=== PATIENT | female | born 1980 | race Caucasian/White ===

== ENCOUNTER → 2016-11-24 | Outpatient (CLI) | payer MEDICAID | LOC: FIMAGING 14:01 | PROVIDERS: ATTEND Advanced Practice Midwife | DX: O09.512 Supervision of elderly primigravida, second trimester (principal); Z3A.13 13 weeks gestation of pregnancy ==

== ENCOUNTER → 2017-01-04 | Outpatient (CLI) | payer MEDICAID | LOC: FIMAGING 10:27 | PROVIDERS: ATTEND Obstetrics & Gynecology | DX: O09.512 Supervision of elderly primigravida, second trimester (principal); Z3A.19 19 weeks gestation of pregnancy ==

== ENCOUNTER 2017-05-29 13:25 | Inpatient (IN) | payer MEDICAID ==
--- NOTE | 2017-05-29 14:14 | OBPROG ---
Labor Progress Note Assessment/Plan: Assessment:cat 1 fhr shameka 12.5 with US feeling occasional contractions + fm denies bloody show exam /ballotable soft posterior amnisure collected negative nitrazine Plan:wait for amnisure labor precautions given fu in the clinic if negative nitrazine with next scheduled appt. 05/29/17 14:12 Subjective/Intrapartum Course: 05/29/17 14:11 questioning leaking of clear fluid this am at 1100 x1 05/29/17 14:15 - SVE Dilation (cm): 1 Effacement (%): 75 Station: -3 Membranes: Intact - Contraction Pattern Assessment Current Contraction Pattern: Regular - Physical Exam General Appearance: WD/WN, alert, no apparent distress Respiratory: chest non-tender, lungs clear, normal breath sounds Cardiac/Chest: regular rate, rhythm Abdomen: normal bowel sounds Extremities: normal range of motion, Daniella's sign (negative bilaterally) DTR- Lower Extremities: Knee (R): 1+, Knee (L): 1+ (no clonus) Skin: normal color, warm/dry Neuro/Psych: no motor/sensory deficits, alert, normal mood/affect, oriented x 3 ICD10 Worksheet Patient Problems: Problems Problem Status Onset term questioning srom Acute
--- NOTE | 2017-05-29 14:41 | GHP ---
[f rep st] HISTORY AND PHYSICAL DATE OF ADMISSION: 05/29/2017 HISTORY OF PRESENT ILLNESS: The patient is a 36-year-old 1, para 0, with an EDC of 8, who comes in to labor and delivery on 05/29/2017, with complaints of rupture of membranes since 11 a.m. The patient has been routinely seeing [facility] since 10/23/2016. PAST MEDICAL HISTORY: HSV 2, anxiety, history of degenerative back disease. PAST SURGICAL HISTORY: Polypectomy with a D and C. GYNECOLOGICAL HISTORY: Previous abnormal Pap, Mirena use, may have had a cryo or LEEP, D and C for p olyps in 2009, HSV 2 since 2006. Menarche at age 10, interval 28 days, length 3-5 days. Last LMP wa s 08/28/2016. SOCIAL HISTORY: Patient is . Denies drug use. Denies tobacco use. ALLERGIES: NKDA. MEDICATIONS: Valtrex, vitamin, folate, omega-3, magnesium, Pashto herbs. LABS: Patient is A positive, antibody negative. RPR is nonreactive. Rubella is immune. Hepatitis is negative. HIV is negative. Gonorrhea and chlamydia are negative. Pap on 10/26/2016, was negativ e. A 1-hour GTT was within normal limits. The patient is GBS positive. At this time, the patient d oes not complain of any HSV outbreaks. The patient is taking Valtrex routinely. PHYSICAL ASSESSMENT: GENERAL: The patient is awake, alert, oriented x3. LUNGS: Clear bilaterally. ABDOMEN: Bowel sounds are positive in all 4 quadrants. EXTREMITIES: DTRs are 1+ bilaterally, wit h no clonus. Homans sign is negative bilaterally. HEART: Rate is regular and rhythmic. PLAN OF CARE: 1. AmniSure. 2. Nitrazine, that was negative. 3. An exam. Patient was 1 cm, 75% effaced, soft, posterior, ballotable, cephalic. An ultrasound wa s completed with an RITO of 12.5. 4. Consult Dr. Xochitl Garcia as needed. /[id number]/MODL
[2017-05-29] MEDS ORDERED: MISOPROSTOL 200 MCG TAB PR PRN (14:45)
[2017-05-29] MEDS ORDERED: AMPICILLIN SODIUM 2 GM in STERILE WATER INJ 25 ML IV ONE (14:45)
[2017-05-29] MEDS ORDERED: OXYTOCIN 20 UNIT in LR 1,000 ML IV PRN (14:45)
[2017-05-29] MEDS ORDERED: EPSOM SALT 454 GM TP PRN (14:45)
[2017-05-29] MEDS ORDERED: TERBUTALINE SULFATE 1 MG/ML VIAL IV PRN (14:45)
[2017-05-29] MEDS ORDERED: OLIVE OIL 118 ML BTL MISC PRN (14:45)
[2017-05-29] MEDS ORDERED: IBUPROFEN 600 MG TAB PO PRN (14:45)
--- NOTE | 2017-05-29 14:45 | OBPROG ---
Labor Progress Note Assessment/Plan: Assessment:cat 1 fhr shameka 12.5 with US feeling occasional contractions + fm denies bloody show exam /ballotable soft posterior amnisure collected negative nitrazine amnisure positive will admit for labor gbs positive will begin antibiotics Plan:admit for labor 05/29/17 14:12 05/29/17 14:43 Subjective/Intrapartum Course: 05/29/17 14:11 questioning leaking of clear fluid this am at 1100 x1 05/29/17 14:15 - SVE Membranes: Intact - Contraction Pattern Assessment Current Contraction Pattern: Regular - Physical Exam General Appearance: WD/WN, alert, no apparent distress Respiratory: chest non-tender, lungs clear, normal breath sounds Cardiac/Chest: regular rate, rhythm Abdomen: normal bowel sounds Extremities: normal range of motion, Daniella's sign (negaive bilaterally) DTR- Lower Extremities: Knee (R): 1+, Knee (L): 1+ (no clonus) Skin: normal color, warm/dry Neuro/Psych: no motor/sensory deficits, alert, normal mood/affect, oriented x 3 ICD10 Worksheet Patient Problems: Problems Problem Status Onset term questioning srom Acute
--- NOTE | 2017-05-29 15:00 | PDMN ---
Medical Necessity Medical necessity: C/M review: est. > 2 MN LOS for eval and TX of ruptured menbranes, positive Amnisure, EDC 05/29/2017, laboe for expectant management of labor and delivery per 05/29/2017 14:43 Labor progress note.
[2017-05-29] MEDS: LR 1,000 ML IV PRN (16:50)
[2017-05-29 17:56] LABS: PLATELET COUNT 145 10^3/uL (150-400)
[2017-05-29] MEDS ORDERED: OXYTOCIN 30 UNIT in NS 500 ML IV SCH (18:00)
[2017-05-29] MEDS ORDERED: AMPICILLIN SODIUM 1 GM in STERILE WATER INJ 15 ML IV SCH (19:00)
--- NOTE | 2017-05-29 20:18 | OBPROG ---
Labor Progress Note Assessment/Plan: Assessment: 36 yo primip at 40 wk with PROM since 1100 this morning (9.5 hours) and no labor yet. High anxiety level, but good support crew here with her. Plan: After options - including pitocin, misoprostil and continued expectant management were discussed, I recommended proceeding with oral misoprostil. Benefits / risks / adverse effects discussed. Pt agreed to proceed with oral misoprostil. 05/29/17 20:30 Subjective/Intrapartum Course: 05/29/17 14:11 questioning leaking of clear fluid this am at 1100 x1 05/29/17 14:15 05/29/17 20:26 Pt, Kuldeep, umesh Enriquez and support person Mellisa, and therapy dog all met. I received report from Tara Iyer CNM. Pt had requested a CNM delivery. She has spoken with Rylee Hernandez CNM, as she has a high anxiety level, though Rylee is not parts person this weekend. After a meeting and discussion, pt and crew took a walk. When she was ready to proceed, she agreed to have another cervix check as she is apprehensive about proceeding. Objective: 05/29/17 16:50 Patient ABO/Rh A POSITIVE 05/29/17 16:50 36.4 68 134/68 SVE 1 / 75 / high and posterior gen - pleasant anxious female abd - soft, gravid, nontender ext - trace edema - SVE Dilation (cm): 1 Effacement (%): 75 Station: -3 Membranes: Intact - Contraction Pattern Assessment Current Contraction Pattern: Irregular - FHR Assessment Buck FHR (bpm): 130 (+ accels) FHR Pattern Variability: Moderate FHR Category: 1 Oxytocin Orders Assessment - Pre-Induction/Augmentation Assessment Gestational Age: 40 week(s) and 0 day(s) ICD10 Worksheet Patient Problems: Problems Problem Status Onset term questioning srom Acute
[2017-05-29] MEDS: MISOPROSTOL 50 MCG CAP PO SCH (20:33)
[2017-05-29] MEDS: AMPICILLIN SODIUM 1 GM in STERILE WATER INJ 15 ML IV SCH (20:34)
[2017-05-30] MEDS: MISOPROSTOL 50 MCG CAP PO SCH ×2 (02:53→07:01)
[2017-05-30] MEDS: AMPICILLIN SODIUM 1 GM in STERILE WATER INJ 15 ML IV SCH ×5 (06:59→23:46)
[2017-05-30] MEDS ORDERED: MISOPROSTOL 50 MCG CAP PO SCH (07:00)
--- NOTE | 2017-05-30 07:00 | OBPROG ---
Labor Progress Note Assessment/Plan: Assessment: 36 yo primip at 40 wk with PROM since 1100 this morning (9.5 hours) and no labor yet. High anxiety level, but good support crew here with her. Plan: After options - including pitocin, misoprostil and continued expectant management were discussed, I recommended proceeding with oral misoprostil. Benefits / risks / adverse effects discussed. Pt agreed to proceed with oral misoprostil. 05/29/17 20:30 05/30/17 07:06 Assessment: 36 yo primip at 40w1d, PROM x 20 hours, not in active labor yet. No signs of chorioamnionitis. Plan: Miso #3 now. Plan vaginal exam in 4 hours and consider pitocin. Long discussion with patient and about this plan. They are agreeable to this. Subjective/Intrapartum Course: 05/29/17 14:11 questioning leaking of clear fluid this am at 1100 x1 05/29/17 14:15 05/29/17 20:26 Pt, umesh Light and support person Mellisa, and therapy dog all met. I received report from Tara Iyer CNM. Pt had requested a CNM delivery. She has spoken with Rylee Hernandez CNM, as she has a high anxiety level, though Rylee is not airborne weapons technical manager this weekend. After a meeting and discussion, pt and crew took a walk. When she was ready to proceed, she agreed to have another cervix check as she is apprehensive about proceeding. 05/30/17 07:00 Pt doing well. Was able to get some sleep last night. Only and therapy dog stayed overnight. Pt prefers to avoid another cervical exam now, but agrees to another dose of misoprostil now, and a vaginal exam and likely pitocin in 4 hours. Feels like baby is a lot lower and contractions are more uncomfortable. Objective: 05/29/17 16:50 Patient ABO/Rh A POSITIVE 05/29/17 16:50 36.7 77 18 102/55 has remained afebrile gen - pleasant female, NAD, does not appear uncomfortable with contractions abd - soft, gravid, NT, does not feel warm - SVE Membranes: Intact - Contraction Pattern Assessment Current Contraction Pattern: Irregular (q2-5) Oxytocin Orders Assessment - Pre-Induction/Augmentation Assessment Gestational Age: 40 week(s) and 0 day(s) ICD10 Worksheet Patient Problems: Problems Problem Status Onset term questioning srom Acute
[2017-05-30] MEDS ORDERED: LIDOCAINE 1% 300 MG/30 ML SDV ONE (08:43)
[2017-05-30] MEDS ORDERED: TERBUTALINE SULFATE 1 MG/ML VIAL ONE (08:44)
[2017-05-30] MEDS ORDERED: OXYTOCIN 10 UNIT/ML VIAL ONE (08:44)
[2017-05-30] MEDS ORDERED: AMMONIA AROMATIC 1 EACH AMP IH ONE (08:44)
[2017-05-30] MEDS ORDERED: MISOPROSTOL 200 MCG TAB ONE (08:44)
[2017-05-30] MEDS ORDERED: OLIVE OIL 118 ML BTL ONE (08:44)
[2017-05-30] MEDS: LR 1,000 ML IV PRN (13:59)
--- NOTE | 2017-05-30 14:35 | OBPROG ---
Labor Progress Note Assessment/Plan: Assessment: Explained rationale behind augmenting with Pitocin, and also reasons for continuing abx given GBS positive. Ultimately we made a plan to start Pit and continuing abx. Will check once she's more uncomfortable with at least 2-3 hrs of regular ctx's. No s/sx of chorio at this point. Baby FHR Category I/II, some intermittent variables. Rylee Hernandez may try to be available for Estefania for delivery - I will also be available. LAYA Subjective/Intrapartum Course: 05/29/17 14:11 questioning leaking of clear fluid this am at 1100 x1 05/29/17 14:15 05/29/17 20:26 Pt, Kuldeep, umesh Enriquez and support person Mellisa, and therapy dog all met. I received report from Tara Iyer CNM. Pt had requested a CNM delivery. She has spoken with Rylee Hernandez CNM, as she has a high anxiety level, though Rylee is not application manager this weekend. After a meeting and discussion, pt and crew took a walk. When she was ready to proceed, she agreed to have another cervix check as she is apprehensive about proceeding. 05/30/17 07:00 Pt doing well. Was able to get some sleep last night. Only and therapy dog stayed overnight. Pt prefers to avoid another cervical exam now, but agrees to another dose of misoprostil now, and a vaginal exam and likely pitocin in 4 hours. Feels like baby is a lot lower and contractions are more uncomfortable. 05/30/17 15:29 Talked to [place] this afternoon. She's doing okay, but frustrated with slow progress. Has only progressed to 1-2 with 3rd miso placed at 0630 this AM. Feeling regular ctx's, but not super painful. She's open to Pitocin. Had been resistant to the idea of antibiotics (further doses anyway) and answered questions about that. Some blood show, leaking more fluid today. Objective: 05/29/17 16:50 Patient ABO/Rh A POSITIVE 05/29/17 16:50 - SVE Dilation (cm): 1 (1-2, on last exam around 1100) Membranes: SROM Amniotic Fluid Color: Clear - Contraction Pattern Assessment Current Contraction Pattern: Irregular (q2-5) - FHR Assessment Buck FHR (bpm): 130 FHR Pattern Variability: Moderate FHR Category: 1 Oxytocin Orders Assessment - Pre-Induction/Augmentation Assessment Gestational Age: 40 week(s) and 0 day(s) ICD10 Worksheet Patient Problems: Problems Problem Status Onset term questioning srom Acute
[2017-05-30] MEDS ORDERED: PHENYLEPHRINE HCL 100 MCG/ML SYR IVP PRN (20:42)
[2017-05-30] MEDS ORDERED: ONDANSETRON 4 MG/2 ML VIAL IVP PRN (20:42)
[2017-05-30] MEDS ORDERED: NALOXONE HCL 0.4 MG/ML INJ IVP PRN (20:42)
--- NOTE | 2017-05-30 20:47 | PDANEPAE ---
ANE History of Present Illness 36 yo female in labor. ANE Past Medical History - Cardiovascular History Hx Hypertension: No Hx Chest Pain: No Hx Palpitations: No - Pulmonary History Hx COPD: No Hx Recent Upper Respiratory Infection: No Hx Sleep Apnea: No - Neurologic History Neurologic History Comment: scoliosis, spondylolisthesis, LBP - Renal History Hx Renal Disorders: No - Liver History Hx Hepatic Disorders: No - Neurological & Psychiatric Hx Hx Neurological and Psychiatric Disorders: Yes Neurological / Psychiatric History Comment: anxiety - Chronic Pain History Chronic Pain: No ANE Review of Systems Review of Systems: ANE Patient History - Allergies Allergies/Adverse Reactions: No Known Allergies Allergy (Unverified 05/29/17 13:50) - NPO status NPO Since - Solids (Date): 05/30/17 NPO Since - Solids (Time): 19:00 - Anes Hx Anes Hx: no prior problems - Smoking Hx Smoking Status: Never smoked ANE Labs/Vital Signs - Labs Result Diagrams: 05/29/17 16:50 - Vital Signs Vital Signs: reviewed preoperatively; see RN documention for details Height: 167.64 cm Weight: 78.471 kg ANE Physical Exam - Airway Neck exam: FROM Mallampati Score: Class 2 Mouth exam: normal dental/mouth exam - Cardiovascular Cardiovascular: regular rate and rhythym - ASA Status ASA Status: II ANE Anesthesia Plan Anesthesia Plan: epidural
[2017-05-30] MEDS ORDERED: FENTANYL EP SCH (21:00)
[2017-05-30] MEDS ORDERED: fentaNYL 4MCG/ML/BUP 0.0625% R 250 ML EP SCH (21:00)
[2017-05-30] MEDS ORDERED: LR 500 ML IV SCH (21:00)
[2017-05-30] MEDS ORDERED: BUPIVACAINE 0.5% EP SCH (21:00)
[2017-05-30] MEDS ORDERED: NS EP SCH (21:00)
--- NOTE | 2017-05-30 21:44 | POSTANESTH ---
Post Anesthetic Evaluation Cardiovascular Status: Normal, Stable Respiratory Status: Normal, Stable Level of Consciousness/Mental Status: Can Participate in Eval, Alert and Oriented Pain Control: Adequate, Prn Tx Ordered Nausea/Vomiting Control: Adequate, Prn Tx Ordered Complications Possibly Related to Anesthesia: None Noted (Pt comfortable with no pain during contractions anymore. All questions answered about how to use epidural optimally.)
--- NOTE | 2017-05-31 00:29 | OBPROG ---
Labor Progress Note Assessment/Plan: Assessment: [id number] with IUP@ 40-2wks PROM- Augmentation, s/p cytotec x 3 doses, currently on pitocin GBS+ cat 2 FHR tracing Prolong ROM (>36hours) Plan: cont pitocin cont to recommend IV Abx for GBS+ reassess 2-4hr/PRN 05/31/17 00:26 05/31/17 00:34 Subjective/Intrapartum Course: 05/29/17 14:11 questioning leaking of clear fluid this am at 1100 x1 05/29/17 14:15 05/29/17 20:26 Pt, Kuldeep, umesh Enriquez and support person Mellisa, and therapy dog all met. I received report from Tara Iyer CNM. Pt had requested a CNM delivery. She has spoken with Rylee Hernandez CNM, as she has a high anxiety level, though Rylee is not health education assistant this weekend. After a meeting and discussion, pt and crew took a walk. When she was ready to proceed, she agreed to have another cervix check as she is apprehensive about proceeding. 05/30/17 07:00 Pt doing well. Was able to get some sleep last night. Only and therapy dog stayed overnight. Pt prefers to avoid another cervical exam now, but agrees to another dose of misoprostil now, and a vaginal exam and likely pitocin in 4 hours. Feels like baby is a lot lower and contractions are more uncomfortable. 05/30/17 15:29 Talked to [place] this afternoon. She's doing okay, but frustrated with slow progress. Has only progressed to 1-2 with 3rd miso placed at 0630 this AM. Feeling regular ctx's, but not super painful. She's open to Pitocin. Had been resistant to the idea of antibiotics (further doses anyway) and answered questions about that. Some blood show, leaking more fluid today. 05/31/17 00:27 Pt doing well, comfortable with MANASA. She denies any pain. She states she is emotionally and physically exhausted. She states she is very frustrated that she has not progressed. Kuldeep and Mina are present and supportive. Objective: 05/29/17 16:50 Patient ABO/Rh A POSITIVE 05/29/17 16:50 - SVE Dilation (cm): 4 Effacement (%): 75 Station: -2 Membranes: SROM Amniotic Fluid Color: Clear - Contraction Pattern Assessment Current Contraction Pattern: Irregular (q2-5) - Physical Exam General Appearance: WD/WN, alert, no apparent distress Abdomen: non-tender, soft Skin: normal color, warm/dry Neuro/Psych: alert, normal mood/affect, oriented x 3 Oxytocin Orders Assessment - Pre-Induction/Augmentation Assessment Presentation: Vertex Gestational Age: 40 week(s) and 0 day(s) Membrane Status: Ruptured Current Contraction Pattern: Irregular - Olzano's Score Dilation: 3-4cm Effacement: 60-70 Station: -2 Cervix: Soft Cervix Position: Mid Lozano Score Total: 8 - Induction/Augmentation Consent Risks/Benefits of Procedure Reviewed/Pt Agrees to Proceed: Yes ICD10 Worksheet Patient Problems: Problems Problem Status Onset AMA (advanced maternal age) multigravida 35+ Acute GBS (group B Streptococcus carrier), +RV culture, currently Acute PROM (premature rupture of membranes) Acute Prolonged spontaneous rupture of membranes Acute term questioning srom Acute - ICD10 Problem Qualifiers (1) PROM (premature rupture of membranes) Qualifiers: PROM onset of labor timing: unspecified duration between rupture of membranes and onset of labor PROM gestational age: full term Qualified Code( s): O42.92 - Full-term premature rupture of membranes, unspecified as to length of time between rupture and onset of labor (2) Prolonged spontaneous rupture of membranes (3) GBS (group B Streptococcus carrier), +RV culture, currently (4) AMA (advanced maternal age) multigravida 35+ Qualifiers: Trimester: third trimester Qualified Code(s): O09.523 - Supervision of elderly multigravida, third trimester
[2017-05-31] MEDS: AMPICILLIN SODIUM 1 GM in STERILE WATER INJ 15 ML IV SCH ×3 (02:24→19:12)
[2017-05-31] MEDS ORDERED: SIMETHICONE 80 MG TAB CHEW PO PRN (16:13)
[2017-05-31] MEDS ORDERED: ACETAMINOPHEN 325 MG TAB PO PRN (16:13)
[2017-05-31] MEDS ORDERED: HYDROCORTISONE 0.5% CREAM TP PRN (16:13)
--- NOTE | 2017-05-31 17:02 | OBDEL ---
Info Type: Vaginal Presentation at Delivery: Vertex L&D Analgesia/Anesthesia Type: Epidural GBS+: Yes Antibiotic Used for + GBS: Ampicillin Intrapartum Medications: Discontinued Medications Generic Name Dose Route Start Last Admin Trade Name Freq PRN Reason Stop Dose Admin Ampicillin Sodium 2 gm/ 25 mls @ 100 mls/hr 05/29/17 14:45 05/29/17 16:50 Sterile Water IV 05/29/17 14:59 25 mls ONCE ONE Administration Protocol Ampicillin Sodium 1 gm/ 15 mls @ 60 mls/hr 05/29/17 19:00 05/29/17 20:25 Sterile Water IV 06/28/17 18:59 Not Given Q4H RICHARD Protocol Lactated Ringer's 1,000 mls @ 0 mls/hr 05/29/17 14:45 05/30/17 13:59 Lr IV 05/30/17 14:44 1,000 mls PRN PRN Administration SEE PROTOCOL CONDITIONS Protocol Per Protocol Oxytocin 30 unit/ Sodium 503 mls @ 0 mls/hr 05/29/17 18:00 05/30/17 14:40 Chloride IV 11/25/17 17:59 503 mls CONT RICHARD Administration Protocol Per Protocol Ampicillin Sodium 1 gm/ 15 mls @ 60 mls/hr 05/29/17 21:00 05/31/17 06:48 Sterile Water IV 06/28/17 20:59 Not Given Q4H RICHARD Protocol Lactated Ringer's 500 mls @ 0 mls/hr 05/30/17 21:00 05/31/17 02:03 Lr IV 11/26/17 20:59 500 mls CONT RICHARD Administration As Directed Ibuprofen 600 mg 05/29/17 14:45 05/31/17 13:01 Motrin PO 11/25/17 14:44 600 mg Q6HRS PRN Administration post , inflammation Misoprostol 50 mcg 05/29/17 20:30 05/30/17 07:01 Cytotec PO 05/30/17 04:31 Not Given Q4H RICHARD Misoprostol 50 mcg 05/30/17 07:00 05/30/17 06:53 Cytotec PO 05/30/17 07:01 50 mcg Q4H RICHARD Administration Ondansetron HCl 4 mg 05/30/17 20:42 05/31/17 08:08 Zofran IVP 05/31/17 20:41 4 mg Q4HRS PRN Administration Nausea/Vomiting, Can't Take PO - Hospital Course Intrapartum: 05/29/17 14:11 questioning leaking of clear fluid this am at 1100 x1 05/29/17 14:15 05/29/17 20:26 Pt, Kuldeep, umesh Enriquez and support person Mellisa, and therapy dog all met. I received report from Tara Iyer CNM. Pt had requested a CNM delivery. She has spoken with Rylee Hernandez CNM, as she has a high anxiety level, though Rylee is not division plant engineer this weekend. After a meeting and discussion, pt and crew took a walk. When she was ready to proceed, she agreed to have another cervix check as she is apprehensive about proceeding. 05/30/17 07:00 Pt doing well. Was able to get some sleep last night. Only and therapy dog stayed overnight. Pt prefers to avoid another cervical exam now, but agrees to another dose of misoprostil now, and a vaginal exam and likely pitocin in 4 hours. Feels like baby is a lot lower and contractions are more uncomfortable. 05/30/17 15:29 Talked to [place] this afternoon. She's doing okay, but frustrated with slow progress. Has only progressed to 1-2 with 3rd miso placed at 0630 this AM. Feeling regular ctx's, but not super painful. She's open to Pitocin. Had been resistant to the idea of antibiotics (further doses anyway) and answered questions about that. Some blood show, leaking more fluid today. 05/31/17 00:27 Pt doing well, comfortable with MANASA. She denies any pain. She states she is emotionally and physically exhausted. She states she is very frustrated that she has not progressed. Salma are present and supportive. Indications for Delivery: SROM Vaginal Delivery - Delivery Provider Delivery Physician/MIGUELANGELM: Rylee Hernandez - Labor and Delivery Onset of Contractions Date: 05/29/17 Onset of Contractions Time: 00:00 Onset of Contractions Type: Induced Rupture of Membranes Date: 05/29/17 Rupture of Membranes Time: 11:00 Rupture of Membranes Type: Spontaneous Amniotic Fluid Color: Clear Dilation Complete Date: 05/31/17 Dilation Complete Time: 04:36 Placenta Delivery Date: 05/31/17 Placenta Delivery Time: 12:36 Total Hours of Labor: 60 Episiotomy: Midline Laceration: 1st Degree Repair: 3-0, Vicryl Vaginal Sponge Count Correct: Yes Vaginal Needle Count Correct: Yes Vaginal Sweep Performed: Yes EBL: 250 Delivery Events: Nuchal Cord Delivery Comment: pushing with poor maternal effort and repetitive variables, Dr. Dariela Ding called for possible vacuum attempt. vacuum was applied x2 with 2 pop-offs, pt then pushed with good head descent. hymenal band released. Head delivered atraumatically with no vacuum, nuchal cord noted, reduced and delivered body through. Cord Gases: Cord Gases Cord Blood PCO2 37.5 mmHg (37-60) 05/31/17 12:30 Cord Base Excess -5.8 mEq/L (-13.6--3.2) 05/31/17 12:30 Cord ABG pH TNP 05/31/17 12:30 Cord VBG pH 7.33 (7.20-7.42) 05/31/17 12:30 - Medications Labor Augmentation/Induction Methods Used: Pitocin, Misoprostol Operative Report - Delivery Cord Gases: Cord Gases Cord Blood PCO2 37.5 mmHg (37-60) 05/31/17 12:30 Cord Base Excess -5.8 mEq/L (-13.6--3.2) 05/31/17 12:30 Cord ABG pH TNP 05/31/17 12:30 Cord VBG pH 7.33 (7.20-7.42) 05/31/17 12:30 Stuart Data ARTURO: 05/29/17 Gestational Age: 40 week(s) and 2 day(s) Buck Delivery Date: 05/31/17 Delivery Time: 12:19 Sex of Infant: Male Weight (gm): 3575 kg Score (1 Min): 7 Score (5 Min): 9 ICD10 Worksheet Patient Problems: Problems Problem Status Onset AMA (advanced maternal age) multigravida 35+ Acute GBS (group B Streptococcus carrier), +RV culture, currently Acute PROM (premature rupture of membranes) Acute Prolonged spontaneous rupture of membranes Acute term questioning srom Acute - ICD10 Problem Qualifiers (1) PROM (premature rupture of membranes) Qualifiers: PROM onset of labor timing: unspecified duration between rupture of membranes and onset of labor PROM gestational age: full term Qualified Code( s): O42.92 - Full-term premature rupture of membranes, unspecified as to length of time between rupture and onset of labor (2) Prolonged spontaneous rupture of membranes (3) GBS (group B Streptococcus carrier), +RV culture, currently (4) AMA (advanced maternal age) multigravida 35+ Qualifiers: Trimester: third trimester Qualified Code(s): O09.523 - Supervision of elderly multigravida, third trimester
[2017-05-31] MEDS: IBUPROFEN 600 MG TAB PO PRN (19:14)
[2017-06-01] MEDS: IBUPROFEN 600 MG TAB PO PRN ×4 (00:41→21:06)
--- NOTE | 2017-06-01 08:13 | OBPP ---
Progress Note Assessment/Plan: Assessment: PPD 1 s/p VAVD mild anemia dysfunctional bladder control Plan: routine care 06/01/17 08:03 Subjective/ Course: 06/01/17 08:05 Pt doing well except nervous about bladder control. reports incontinence in bathroom - can't engage bladder muscles. bld is very light. baby working on latch. bottom sore and using ice. Objective: 06/01/17 04:15 Patient ABO/Rh A POSITIVE 05/29/17 16:50 Temp Pulse Resp BP Pulse Ox 36.4 C 65 16 102/61 95 05/31/17 19:40 05/31/17 19:40 05/31/17 19:40 05/31/17 19:40 05/31/17 19:40 Uterine Position/Fundal Height: Umbilicus -1 Uterine Tone: Firm Physical Exam - Physical Exam Abdomen: non-tender, soft, other (FF at umb -1, lochia small) Extremities: non-tender, pedal edema (mild) Skin: normal color, warm/dry Neuro/Psych: alert, normal mood/affect
[2017-06-01] MEDS: IRON POLYSAC/IRON HEME 28 MG TAB PO SCH (10:38)
[2017-06-01] MEDS: DOCUSATE SODIUM 100 MG CAP PO PRN ×2 (10:38→21:05)
[2017-06-01] MEDS: HYDROCODONE/APAP 5/325 TAB PO PRN ×2 (10:38→21:07)
[2017-06-01] MEDS ORDERED: EPSOM SALT 454 GM TP ONE ×2 (11:50→18:23)
[2017-06-02] MEDS: HYDROCODONE/APAP 5/325 TAB PO PRN (00:54)
[2017-06-02] MEDS: IBUPROFEN 600 MG TAB PO PRN ×2 (04:49→14:12)
[2017-06-02 08:39] VITALS: PULSE 63; RESP 16; TEMP 97.7; O2SAT 94
[2017-06-02] MEDS: DOCUSATE SODIUM 100 MG CAP PO PRN (08:43)
[2017-06-02] MEDS: IRON POLYSAC/IRON HEME 28 MG TAB PO SCH (08:43)
[2017-06-02 09:56] VITALS: BP 106/58
--- NOTE | 2017-06-02 13:02 | OBPP ---
Progress Note Assessment/Plan: Assessment: 36 y/o PPD #2 s/p VAVD doing well. Plan: D/c home today with Rx [place], Ibuprofen and Bifera. Follow-up @ [facility] 4 and 6 weeks. 06/02/17 13:01 Subjective/ Course: 06/01/17 08:05 Pt doing well except nervous about bladder control. reports incontinence in bathroom - can't engage bladder muscles. bld is very light. baby working on latch. bottom sore and using ice. 06/02/17 12:58 Pt is doing well this am. Her bladder control is better but she had another episode early this am when her bladder was full. Breast feeding is going better and they are ready to d/c home. Objective: 06/01/17 04:15 Patient ABO/Rh A POSITIVE 05/29/17 16:50 Temp Pulse Resp BP Pulse Ox 36.5 C 63 16 106/58 L 94 06/02/17 08:31 06/02/17 08:31 06/02/17 08:31 06/02/17 09:55 06/02/17 08:31 Uterine Position/Fundal Height: Umbilicus -2 Uterine Tone: Firm Physical Exam - Physical Exam General Appearance: alert, no apparent distress Neck: non-tender, full range of motion, supple Respiratory: chest non-tender, lungs clear, normal breath sounds Cardiac/Chest: regular rate, rhythm Abdomen: normal bowel sounds Extremities: swelling (no), Adniella's sign (neg)
--- NOTE | 2017-06-02 13:03 | OBGCSDC ---
General Delivery Information - General Info : 1 Para: 1 Abortions: 0 Type: Vaginal L&D Analgesia/Anesthesia Type: Epidural Admission Date: 05/29/17 Labs: Patient ABO/Rh A POSITIVE 05/29/17 16:50 Hct 35.9 % (38.0-47.0) L 06/01/17 04:15 - Hospital Course Intrapartum: 05/29/17 14:11 questioning leaking of clear fluid this am at 1100 x1 05/29/17 14:15 05/29/17 20:26 Pt, Kuldeep, umesh Enriquez and support person Mellisa, and therapy dog all met. I received report from Tara Iyer CNM. Pt had requested a CNM delivery. She has spoken with Rylee Hernandez CNM, as she has a high anxiety level, though Rylee is not microarray operations vice president this weekend. After a meeting and discussion, pt and crew took a walk. When she was ready to proceed, she agreed to have another cervix check as she is apprehensive about proceeding. 05/30/17 07:00 Pt doing well. Was able to get some sleep last night. Only and therapy dog stayed overnight. Pt prefers to avoid another cervical exam now, but agrees to another dose of misoprostil now, and a vaginal exam and likely pitocin in 4 hours. Feels like baby is a lot lower and contractions are more uncomfortable. 05/30/17 15:29 Talked to [place] this afternoon. She's doing okay, but frustrated with slow progress. Has only progressed to 1-2 with 3rd miso placed at 0630 this AM. Feeling regular ctx's, but not super painful. She's open to Pitocin. Had been resistant to the idea of antibiotics (further doses anyway) and answered questions about that. Some blood show, leaking more fluid today. 05/31/17 00:27 Pt doing well, comfortable with MANASA. She denies any pain. She states she is emotionally and physically exhausted. She states she is very frustrated that she has not progressed. Kuldeep and Mina are present and supportive. : 06/01/17 08:05 Pt doing well except nervous about bladder control. reports incontinence in bathroom - can't engage bladder muscles. bld is very light. baby working on latch. bottom sore and using ice. 06/02/17 12:58 Pt is doing well this am. Her bladder control is better but she had another episode early this am when her bladder was full. Breast feeding is going better and they are ready to d/c home. Vaginal - Delivery Provider Delivery Physician/CNM: Rylee Hernandez - Diagnosis Labor: Induced Rupture of Membranes Type: Spontaneous Amniotic Fluid Color: Clear Episiotomy: Midline Laceration: 1st Degree Repair: 3-0, Vicryl Delivery Events: Nuchal Cord - Delivery EBL: [address] [place] Data ARTURO: 05/29/17 Gestational Age: 40 week(s) and 4 day(s) Buck Delivery Date: 05/31/17 Delivery Time: 12:19 Sex of Infant: Male Weight (gm): 3575 kg Score (1 Min): 7 Score (5 Min): 9 Discharge Information - Discharge Information Prescriptions: Hydrocodone/APAP 5/325 [[place] 5/325 (*)] 1 tab PO Q4HRS PRN #14 tab PRN Reason: Pain, Moderate Able To Take Po Ibuprofen [Motrin (*)] 600 mg PO Q6HRS PRN #30 tab PRN Reason: Pain, Inflammatory Iron Polysacch/Iron Heme Polyp [Bifera] 28 mg PO DAILY #30 tab Condition: Good Instruction/Follow Up: Four Weeks, Six Weeks
== END 2017-06-02 15:00 | disposition home or self-care (01) | DRG 775 ==
LOC: FLD 13:25 → OBSVTOIN 14:50 → FOB 05-31 15:20
PROVIDERS: ADMIT Hospitalist; ATTEND Hospitalist
PROC: 3E033VJ Introduction of Other Hormone into Peripheral Vein, Percutaneous Approach (ICD-10-PCS; 2017-05-30)
PROC: 10D07Z6 Extraction of Products of Conception, Vacuum, Via Natural or Artificial Opening (ICD-10-PCS; principal; 2017-05-31)
PROC: 0HQ9XZZ Repair Perineum Skin, External Approach (ICD-10-PCS; principal; 2017-05-31)
PROC: 10E0XZZ Delivery of Products of Conception, External Approach (ICD-10-PCS; principal; 2017-05-31)
PROC: 0W8NXZZ Division of Female Perineum, External Approach (ICD-10-PCS; principal; 2017-05-31)
DX: O42.12 Full-term premature rupture of membranes, onset of labor more than 24 hours following rupture (principal); O48.0 Post-term pregnancy; O69.81X0 Labor and delivery complicated by cord around neck, without compression, not applicable or unspecified; O99.344 Other mental disorders complicating childbirth; F41.9 Anxiety disorder, unspecified; O99.820 Streptococcus B carrier state complicating pregnancy; Z3A.40 40 weeks gestation of pregnancy; Z37.0 Single live birth
CPT/HCPCS: J0290; J2370; J2405; J2590; J3010; J3105

== ENCOUNTER → 2017-06-24 | Outpatient (CLI) | payer MEDICAID | LOC: FLACT 12:20 | PROVIDERS: ATTEND Advanced Practice Midwife | DX: Z39.1 Encounter for care and examination of lactating mother (principal) | CPT/HCPCS: G0463 ==